=== PATIENT | male | born 1965 | race Caucasian/White ===

== ENCOUNTER 2024-08-14 08:59 | Outpatient (CLI) | payer BC, SELFPAY ==
--- NOTE | 2024-08-14 10:33 | W.ANESCHARGE ---
Anesthesia Charges Start Date/Time Anesthesia Start Date: 08/14/24 Anesthesia Start Time: 10:05 Stop Date/Time Anesthesia Stop Date: 08/14/24 Anesthesia Stop Time: 10:33
--- NOTE | 2024-08-14 10:34 | W.ANESCHARGE ---
Anesthesia Charges Start Date/Time Anesthesia Start Date: 08/14/24 Anesthesia Start Time: 10:05 Stop Date/Time Anesthesia Stop Date: 08/14/24 Anesthesia Stop Time: 10:33
== END 2024-08-14 09:00 | disposition home or self-care (01) ==
PROVIDERS: PCP Surgery; Visit Provider Internal Medicine Gastroenterology
DX: Z12.11 Encounter for screening for malignant neoplasm of colon (principal); D12.5 Benign neoplasm of sigmoid colon
CPT/HCPCS: 00811; 45385; 88305; J2704